=== PATIENT | male | born 1965 | race Caucasian/White ===

== ENCOUNTER 2019-06-25 08:22 | Emergency (ER) | payer OTHER ==
[~2019-06-25] VITALS: Ht 172.7 cm; Wt 73.5 kg
--- NOTE | 2019-06-25 08:33 | NUR ---
Patient ambulated to bed 9. RN evaluating patient at bedside.
--- NOTE | 2019-06-25 08:35 | NUR ---
BIB W/ C/O LT SIDED CHEST PAIN RADIATING TO HIS LT UPPER ARM THIS MORNING. PAIN 06/07. SYMPTOMS STARTED LAST SUNDAY WHEN HE FLEW BACK FROM [place]. STATES "NOT FEELING HIMSELF". BP 205/100, ACU CHECK 408. DENIES NVD, TINGLING, OR NUMBNESS. [id number]. BED IS DOWN, LOCKED, BED RIAL X 1, ERMD TO SEE PT. HX DM, HTN DENIES TAKING MEDICATION
[2019-06-25 08:37] VITALS: BP 205/104
--- NOTE | 2019-06-25 08:50 | NUR ---
18 G INSERTED R AC, LABS DRAWN BEDSIDE
--- NOTE | 2019-06-25 09:21 | NUR ---
DR RENNER AT BEDSIDE
[2019-06-25] MEDS ORDERED: ASPIRIN 325 MG TAB PO ONE (09:25)
[2019-06-25] MEDS ORDERED: NITROGLYCERIN 0.4 MG TAB SL ONE (09:25)
--- NOTE | 2019-06-25 09:38 | NUR ---
ASPIRIN NOT ADMINISTERED. PATIENT STATES HE TOOK ASPIRIN A COUPLE HOURS AGO. DR RENNER NOTIFIED.
[2019-06-25 09:41] LABS: BASOPHILS % (AUTO) 0.5 % (0.0-2.0); EOSINOPHILS # (AUTO) 0.1 K/uL (0-0.4); EOSINOPHILS % (AUTO) 1.7 % (0.0-4.0); HEMATOCRIT 47.2 % (36-52); LYMPHOCYTES # (AUTO) 1.7 K/uL (2.0-11.5); LYMPHOCYTES % (AUTO) 21.9 % (20.5-51.1); MEAN CORPUSCULAR HEMOGLOBIN 31 pg (27-31); MEAN CORPUSCULAR HGB CONC 34 g/dL (33-37); MEAN CORPUSCULAR VOLUME 90.9 fL (80-94); MONOCYTES # (AUTO) 0.5 K/uL (0.8-1.0); MONOCYTES % (AUTO) 6.7 % (1.7-9.3); NEUTROPHILS # (AUTO) 5.3 K/uL (1.8-7.7); NEUTROPHILS % (AUTO) 69.2 % (42.2-75.2); PLATELET COUNT (AUTO) 238 K/uL (140-450); RED BLOOD CELL COUNT(AUTO) 5.19 MIL/uL (4.20-6.10); RED CELL DISTRIBUTION WIDTH 14.1 % (11.6-13.7); WHITE BLOOD COUNT (AUTO) 7.7 K/uL (4.8-10.8)
--- NOTE | 2019-06-25 09:43 | NUR ---
XRAY AT BEDSIDE
[2019-06-25 10:00] LABS: ALBUMIN 3.4 g/dL (3.4-5.0); ANION GAP 11.4 (8-16); CARBON DIOXIDE 29.6 mmol/L (21-32); CREATININE 0.9 mg/dL (0.7-1.3); TOTAL BILIRUBIN 0.5 mg/dL (0.0-1.0)
[2019-06-25] MEDS ORDERED: metFORMIN 500 MG TAB PO ONE (10:45)
[2019-06-25] MEDS ORDERED: NACL 0.9% 1,000 ML IV ONE (10:45)
--- NOTE | 2019-06-25 10:46 | NUR ---
DR RENNER AT BEDSIDE
--- NOTE | 2019-06-25 10:46 | NUR ---
Dr. Castañeda re-evaluating patient at bedside.
--- NOTE | 2019-06-25 12:15 | NUR ---
ACCU CHECK 223
[2019-06-25 12:44] VITALS: BP 148/82
--- NOTE | 2019-06-25 12:45 | NUR ---
Patient discharged with v/s stable. Written and verbal after care instructions given and explained. Patient alert, oriented and verbalized understanding of instructions. Ambulatory with steady gait. All questions addressed prior to discharge. ID band removed. Patient advised to follow up with PMD. Rx of Metformin, Lisinopril given. Patient educated on indication of medication including possible reaction and side effects. Opportunity to ask questions provided and answered.
== END 2019-06-25 12:45 | disposition home or self-care (01) ==
LOC: MED 08:22
DX: R07.89 Other chest pain (principal); I10 Essential (primary) hypertension; E11.9 Type 2 diabetes mellitus without complications
CPT/HCPCS: 36415; 71045; 80053; 82948; 84484; 85025; 93005; 99284; J7030; Q0092